=== PATIENT | male | born 1965 | race Caucasian/White ===

== ENCOUNTER 2019-08-03 08:38 | Emergency (ER) | payer MEDICAID ==
[~2019-08-03] VITALS: Ht 165.1 cm; Wt 73.0 kg
[2019-08-03 08:48] VITALS: Ht 165.1 cm; Wt 73.0 kg
[2019-08-03 09:34] LABS: BASOPHIL % 0.7 % (0-2); PLATELET COUNT 242 x10^3mcL (130-400)
[2019-08-03 09:35] LABS: CALCIUM 8.3 mg/dL (8.5-10.1); CARBON DIOXIDE 24.4 mmol/L (21-32); CREATININE SERUM 2.7 mg/dL (0.7-1.3); POTASSIUM SERUM 4.7 mmol/L (3.5-5.1)
[2019-08-03 09:39] LABS: BILIRUBIN TOTAL 0.4 mg/dL (0.20-1.00); TOTAL PROTEIN, SERUM 7.6 g/dL (6.4-8.2)
[2019-08-03 09:45] LABS: RED CELL DISTRIBUTION WIDTH 16.5 % (11.5-14.5)
[2019-08-03 13:06] VITALS: BP 151/94
== END 2019-08-03 13:06 | disposition home or self-care (01) ==
LOC: ED 08:38
PROVIDERS: Emergency Medicine
DX: I10 Essential (primary) hypertension (principal); N18.6 End stage renal disease; Z99.2 Dependence on renal dialysis
CPT/HCPCS: 82962; J0360; Q0092

== ENCOUNTER 2019-08-26 22:03 | Inpatient (IN) | payer MEDICAID ==
[~2019-08-26] VITALS: Ht 170.2 cm; Wt 67.2 kg
[2019-08-26 22:20] VITALS: Ht 170.2 cm; Wt 67.2 kg
[2019-08-26 23:22] LABS: BASOPHIL % 0.6 % (0-2); PLATELET COUNT 272 x10^3mcL (130-400); RED CELL DISTRIBUTION WIDTH 13.1 % (11.5-14.5)
[2019-08-26 23:40] LABS: ALKALINE PHOSPHATASE 101 U/L (46-116); ALT/SGPT 27 U/L (16-63); AST/SGOT 29 U/L (15-37); BILIRUBIN TOTAL 0.2 mg/dL (0.20-1.00); CALCIUM 8.6 mg/dL (8.5-10.1); CHLORIDE SERUM 107 mmol/L (98-107); GLUCOSE SERUM 146 mg/dL (74-106); LIPASE 269 IU/L (73-393); POTASSIUM SERUM 4.5 mmol/L (3.5-5.1); SODIUM SERUM 141 mmol/L (136-145); TOTAL PROTEIN, SERUM 7.8 g/dL (6.4-8.2)
[2019-08-26 23:41] LABS: ALBUMIN 3.3 g/dL (3.4-5.0); GFR1 14 mL/min
[2019-08-26 23:42] LABS: CREATININE SERUM 4.7 mg/dL (0.7-1.3)
[2019-08-27] VITALS (10 sets, daily range): BP systolic 112–192; BP diastolic 57–120
[2019-08-27 01:55] LABS: UA SPECIFIC GRAVITY 1.025 (1.005-1.035); microscopic required? YES; urine erythrocyte 2+ (NEGATIVE)
[2019-08-27 02:14] LABS: AMPHETAMINE QUAL UR POSITIVE (See below)
[2019-08-27 03:18] LABS: T3 TOTAL 1.13 ng/mL
[2019-08-27 03:23] LABS: FREE T4 1.46 ng/dL (0.76-1.46); FREE THYROXINE INDEX 2.4 ug/dL (1.4-4.5); T4(THYROXINE) 6.4 ug/dL (4.7-13.3)
[2019-08-27 03:54] LABS: MAGNESIUM 2.5 mg/dL (1.8-2.4); PHOSPHOROUS 5.5 mg/dL (2.5-4.9)
[2019-08-27 03:57] LABS: CHOLESTEROL/HDL RATIO 2.3
[2019-08-27 06:45] LABS: BASOPHIL % 0.6 % (0-2); PLATELET COUNT 272 x10^3mcL (130-400); RED CELL DISTRIBUTION WIDTH 13.2 % (11.5-14.5)
[2019-08-27 06:56] LABS: CALCIUM 8.8 mg/dL (8.5-10.1); CARBON DIOXIDE 19.4 mmol/L (21-32); MAGNESIUM 2.6 mg/dL (1.8-2.4); PHOSPHOROUS 5.4 mg/dL (2.5-4.9); POTASSIUM SERUM 4.6 mmol/L (3.5-5.1)
[2019-08-27 07:43] LABS: CREATININE SERUM 4.5 mg/dL (0.7-1.3)
[2019-08-28 05:43] VITALS: BP 178/109
[2019-08-28 06:47] LABS: BASOPHIL % 0.6 % (0-2); PLATELET COUNT 251 x10^3mcL (130-400); RED CELL DISTRIBUTION WIDTH 13.1 % (11.5-14.5)
[2019-08-28 08:23] LABS: CALCIUM 9.3 mg/dL (8.5-10.1); CARBON DIOXIDE 18.7 mmol/L (21-32); MAGNESIUM 2.5 mg/dL (1.8-2.4); PHOSPHOROUS 4.8 mg/dL (2.5-4.9); POTASSIUM SERUM 4.3 mmol/L (3.5-5.1)
[2019-08-28 08:25] LABS: CREATININE SERUM 4.3 mg/dL (0.7-1.3)
[2019-08-28 09:32] VITALS: BP 149/84
[2019-08-28 13:02] VITALS: BP 153/83
[2019-08-28] MEDS ORDERED: LIPI10 PO (13:02)
[2019-08-28] MEDS ORDERED: ADA30 PO (13:03)
[2019-08-28] MEDS ORDERED: COR6 PO (13:03)
[2019-08-28] MEDS ORDERED: ECO81 PO (13:03)
[2019-08-28] MEDS ORDERED: LISINOPRIL40 MG PO (14:27)
[2019-08-28] MEDS ORDERED: HYDROCHLOROTHIA50 MG PO (14:27)
[2019-08-28 14:29] VITALS: BP 153/83
[2019-08-28 15:07] VITALS: BP 134/85
== END 2019-08-28 15:59 | disposition home or self-care (01) | DRG 775 ==
LOC: ED 22:03 → DU 08-27 00:40
PROVIDERS: Emergency Medicine; ADMIT Internal Medicine
DX: F10.239 Alcohol dependence with withdrawal, unspecified (principal); I21.A1 Myocardial infarction type 2; N17.0 Acute kidney failure with tubular necrosis; G92 Toxic encephalopathy; I13.2 Hypertensive heart and chronic kidney disease with heart failure and with stage 5 chronic kidney disease, or end stage renal disease; I42.9 Cardiomyopathy, unspecified; E44.1 Mild protein-calorie malnutrition; E83.39 Other disorders of phosphorus metabolism; N18.6 End stage renal disease; I50.9 Heart failure, unspecified; E87.8 Other disorders of electrolyte and fluid balance, not elsewhere classified; E87.2 Acidosis; E83.41 Hypermagnesemia; F15.129 Other stimulant abuse with intoxication, unspecified; T43.621A Poisoning by amphetamines, accidental (unintentional), initial encounter; I16.1 Hypertensive emergency; E86.0 Dehydration; Z91.15 Patient's noncompliance with renal dialysis; Z99.2 Dependence on renal dialysis; Z68.23 Body mass index [BMI] 23.0-23.9, adult
CPT/HCPCS: 83880; 84439; 86480; 97116-GP; G0378; G0480; J0360; J2060; J2405; J3490; J7030; Q0092

== ENCOUNTER 2019-09-13 19:33 | Emergency (ER) | payer MEDICAID ==
[~2019-09-13] VITALS: Ht 167.6 cm; Wt 69.9 kg
[~2019-09-13 19:33] MED LIST: ADA30 PO; COR6 PO; ECO81 PO; HYDROCHLOROTHIA50 MG PO; LIPI10 PO; LISINOPRIL40 MG PO
[2019-09-13 19:39] VITALS: Ht 167.6 cm; Wt 69.9 kg
[2019-09-13 20:46] VITALS: BP 193/119
== END 2019-09-13 20:46 | disposition home or self-care (01) ==
LOC: ED 19:33
DX: T82.838A Hemorrhage due to vascular prosthetic devices, implants and grafts, initial encounter (principal); R11.2 Nausea with vomiting, unspecified; F10.20 Alcohol dependence, uncomplicated; I12.9 Hypertensive chronic kidney disease with stage 1 through stage 4 chronic kidney disease, or unspecified chronic kidney disease; N18.9 Chronic kidney disease, unspecified; Y90.9 Presence of alcohol in blood, level not specified

== ENCOUNTER 2019-10-02 17:58 | Inpatient (IN) | payer MEDICAID ==
[~2019-10-02] VITALS: Ht 170.2 cm; Wt 71.9 kg
[2019-10-02 18:04] VITALS: Ht 170.2 cm; Wt 71.9 kg
[2019-10-02 18:50] LABS: BASOPHIL % 0.5 % (0-2); PLATELET COUNT 279 x10^3mcL (130-400)
[2019-10-02 19:09] LABS: ALBUMIN 3.4 g/dL (3.4-5.0); BILIRUBIN TOTAL 0.23 mg/dL (0.20-1.00); CALCIUM 8.3 mg/dL (8.5-10.1); CARBON DIOXIDE 19.9 mmol/L (21-32); CREATININE SERUM 2.9 mg/dL (0.7-1.3); MAGNESIUM 2.2 mg/dL (1.8-2.4); POTASSIUM SERUM 4.3 mmol/L (3.5-5.1); TOTAL PROTEIN, SERUM 6.9 g/dL (6.4-8.2)
[2019-10-02 21:37] VITALS: BP 170/95
[2019-10-02 21:42] LABS: PHOSPHOROUS 4.6 mg/dL (2.5-4.9)
[2019-10-02 21:43] LABS: CHOLESTEROL/HDL RATIO 1.8
[2019-10-02 21:48] LABS: microscopic required? YES; urine erythrocyte TRACE (NEGATIVE)
[2019-10-02 21:58] LABS: AMPHETAMINE QUAL UR NONE DETECTED (See below)
[2019-10-02 22:00] LABS: T3 TOTAL 0.75 ng/mL
[2019-10-02 22:03] LABS: FREE T4 0.98 ng/dL (0.76-1.46)
[2019-10-02 22:04] LABS: FREE THYROXINE INDEX 1.8 ug/dL (1.4-4.5); T4(THYROXINE) 4.6 ug/dL (4.7-13.3)
[2019-10-03 05:02] VITALS: BP 180/89
[2019-10-03 06:57] LABS: BASOPHIL % 0.7 % (0-2); PLATELET COUNT 262 x10^3mcL (130-400); RED CELL DISTRIBUTION WIDTH 12.5 % (11.5-14.5)
[2019-10-03 07:22] VITALS: BP 165/87
[2019-10-03 07:29] LABS: CALCIUM 8.5 mg/dL (8.5-10.1); CARBON DIOXIDE 20.8 mmol/L (21-32); MAGNESIUM 2.1 mg/dL (1.8-2.4); PHOSPHOROUS 5.5 mg/dL (2.5-4.9); POTASSIUM SERUM 4.7 mmol/L (3.5-5.1)
[2019-10-03 11:17] VITALS: BP 158/88
[2019-10-03 16:51] VITALS: BP 169/91
[2019-10-03 19:39] VITALS: BP 162/82
[2019-10-03 22:30] VITALS: BP 153/83
[2019-10-04 04:54] VITALS: BP 164/96
[2019-10-04 06:48] VITALS: BP 158/85
[2019-10-04 08:22] VITALS: BP 150/91
[2019-10-04 08:57] LABS: BASOPHIL % 0.7 % (0-2); PLATELET COUNT 237 x10^3mcL (130-400); RED CELL DISTRIBUTION WIDTH 12.8 % (11.5-14.5)
[2019-10-04 09:07] LABS: CALCIUM 8.5 mg/dL (8.5-10.1); CARBON DIOXIDE 22.3 mmol/L (21-32); CREATININE SERUM 3.3 mg/dL (0.7-1.3); MAGNESIUM 2.1 mg/dL (1.8-2.4); PHOSPHOROUS 4.1 mg/dL (2.5-4.9); POTASSIUM SERUM 4.3 mmol/L (3.5-5.1)
[2019-10-04 11:43] VITALS: BP 150/91
[2019-10-04 13:42] VITALS: BP 148/85
== END 2019-10-04 16:38 | disposition home or self-care (01) | DRG 775 ==
LOC: ED 17:58 → DU 20:20
PROVIDERS: Emergency Medicine; Internal Medicine Nephrology; ADMIT Internal Medicine
DX: F10.129 Alcohol abuse with intoxication, unspecified (principal); E87.8 Other disorders of electrolyte and fluid balance, not elsewhere classified; N17.9 Acute kidney failure, unspecified; I12.0 Hypertensive chronic kidney disease with stage 5 chronic kidney disease or end stage renal disease; E83.51 Hypocalcemia; E87.1 Hypo-osmolality and hyponatremia; D64.9 Anemia, unspecified; N18.6 End stage renal disease; Y90.9 Presence of alcohol in blood, level not specified; Z99.2 Dependence on renal dialysis; Z79.899 Other long term (current) drug therapy
CPT/HCPCS: 83880; 84439; G0378; G0480; J0360; J2405; J2765; J3411; J7030